=== PATIENT | male | born 1940 | race Caucasian/White ===

== ENCOUNTER → 2019-03-21 | Outpatient (CLI) | payer MEDICARE, BC ==
[~2019-03-21] MED LIST: AGGRENOX ER 251 CER PO; ASPIRIN 81M81 MG/TA2 PO; BACTROBAN 22GM22 GM TP; CHANTIX 1MG1 MG PO; CIPRO 500MG TA500 MG PO; COLACE 100100 MG/CAP PO; NORVASC 10MG10 MG PO; PLAVIX 75MG TAB75 MG PO; PRAVACHOL 20MG20 MG PO; RT SPIRIVA18 MCG IH; VESICARE 5MG5 MG PO; WELLBUTRIN SR150 M1 PO
== END ==
LOC: COL.RAD 10:36
DX: G31.9 Degenerative disease of nervous system, unspecified (principal); G20 Parkinson's disease